=== PATIENT | male | born 1960 | race Caucasian/White ===

== ENCOUNTER 2017-12-07 11:33 | Emergency (ER) | payer MEDICARE, MEDICAID ==
[2017-12-07] MEDS ORDERED: Ibuprofen TAB* 600 MG PO ONE (13:22)
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
[2017-12-07 13:37] VITALS: BP 135/83
== END 2017-12-07 13:34 | disposition home or self-care (01) ==
LOC: ED 11:33
DX: H11.31 Conjunctival hemorrhage, right eye (principal); H10.9 Unspecified conjunctivitis; M25.551 Pain in right hip; Y09 Assault by unspecified means; F17.200 Nicotine dependence, unspecified, uncomplicated; Z88.6 Allergy status to analgesic agent
CPT/HCPCS: 99282; A9270-GY

== ENCOUNTER 2018-03-10 10:45 | Observation (INO) | payer MEDICARE, MEDICAID ==
[2018-03-10] MEDS ORDERED: Aspirin 81 mg CHEW TAB* 81 MG TAB.CHEW PO ONE (11:05)
[2018-03-10] MEDS ORDERED: Nitroglycerin TAB 0.4 MG* 0.4 MG TAB SL ONE (11:07)
[2018-03-10 11:17] LABS: ABS Basophils 0.1 10^3/ul (0-0.2); ABS Eosinophils 0.1 10^3/ul (0-0.6); ABS Lymphocytes 1.5 10^3/ul (1.0-4.8); ABS Monocytes 0.6 10^3/ul (0-0.8); ABS Nucleated RBC 0 10^3/ul; Eosinophil % 1.4 % (0-6); Hematocrit 39 % (42-52); Hemoglobin 13.1 g/dl (14.0-18.0); Lymphocyte % 20.8 % (25-47); Mean Corpuscular HGB Conc 33 g/dl (31-36); Mean Corpuscular Hemoglobin 34 pg (27-31); Mean Corpuscular Volume 101 fL (80-94); Mean Platelet Volume 8.3 um3 (7.4-10.4); Nucleated Red Blood Cells % 0; Platelet Count 288 10^3/ul (150-450); Red Blood Count 3.87 10^6/ul (4.0-5.4); Red Cell Distribution Width 14 % (10.5-15); White Blood Count 7.4 10^3/ul (3.5-10.8)
[2018-03-10 11:36] LABS: EGFR Non-African American 91.1 (>60)
--- NOTE | 2018-03-10 11:44 | RAD ---
HISTORY: Chest pain COMPARISONS: January 16, 2009 VIEWS: 1: frontal portable view of the chest at 11:18 AM FINDINGS: LINES AND TUBES: None. CARDIOMEDIASTINAL SILHOUETTE: The cardiomediastinal silhouette is normal for portable technique. PLEURA: The costophrenic angles are sharp. No pleural abnormalities are noted. LUNG PARENCHYMA: The lungs are clear. ABDOMEN: The upper abdomen is clear. There is no subphrenic gas. BONES AND SOFT TISSUES: No bone or soft tissue abnormalities are noted. IMPRESSION: NO ACTIVE CARDIOPULMONARY DISEASE.
--- NOTE | 2018-03-10 12:18 | ED ---
Estiven Hammond Angela, scribed for Wei Paez MD on 03/10/18 at 1107 . HPI Chest Pain - HPI Summary HPI Summary: This pt is a 57 y/o male presenting to [facility] via EMS c/o chest pain today. Pt describes his chest pain as pressure and states "it feels like someone is pressing on my chest." He reports his pain radiates down his left arm and rates his pain 4 out of 10 in severity. He additionally notes dizziness, SOB, and nausea. Denies diaphoresis, vomiting. His setter up is Dr. Ching. Pt is scheduled for a cardiac catheterization tomorrow (03/11/18). Pt is a current smoker. 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 - History of Current Complaint Chief Complaint: EDChestPainROMI Hx Obtained From: Patient Onset/Duration: Started Hours Ago, Atraumatic, Still Present Timing: Lasting Hours Current Severity: Moderate Pain Intensity: 4 Pain Scale Used: 0-10 Numeric Chest Pain Location: Diffuse Chest Pain Radiates: Yes Chest Pain Radiates To:: Arm - left Character: Pressure/Squeezing - Pressure Aggravating Factor(s): Nothing Alleviating Factor(s): Nothing Associated Signs and Symptoms: Positive: Chest Pain, Dizziness, Shortness of Breath, Nausea. Negative: Diaphoresis, Vomiting - Allergy/Home Medications Allergies/Adverse Reactions: Allergies Allergy/AdvReac Type Severity Reaction Status Date / Time naproxen Allergy Unknown Verified 12/07/17 13:34 Reaction Details Home Medications: Home Medications Aspirin EC TAB* [Ecotrin EC Low Dose 81 MG*] 81 mg PO DAILY 03/10/18 [History Confirmed 03/10/18] Atorvastatin* [Lipitor*] 80 mg PO DAILY 03/10/18 [History Confirmed 03/10/18] Metoprolol Tartrate TAB* [Lopressor TAB*] 25 mg PO BID 03/10/18 [History Confirmed 03/10/18] PMH/Surg Hx/FS Hx/Imm Hx Endocrine/Hematology History: Denies: Hx Anticoagulant Therapy, Hx Diabetes Cardiovascular History: Denies: Hx Hypertension Respiratory History: Denies: Hx Asthma - Surgical History Surgery Procedure, Year, and Place: n/a Infectious Disease History: No Infectious Disease History: Denies: Traveled Outside the [place] in Last 30 Days - Family History Known Family History: Positive: Cardiac Disease Negative: Diabetes Family History: [place] - Social History Alcohol Use: Occasionally Substance Use Type: Reports: None Smoking Status (MU): Heavy Every Day Tobacco Smoker Review of Systems Negative: Fever Positive: Chest Pain Positive: Shortness Of Breath Positive: Nausea. Negative: Vomiting Neurological: Other - POS: dizziness All Other Systems Reviewed And Are Negative: Yes Physical Exam - Summary Physical Exam Summary: VITAL SIGNS: Reviewed. GENERAL: Patient is a well-developed and nourished male who is lying comfortable in the stretcher. Patient is not in any acute respiratory distress. HEAD AND FACE: No signs of trauma. No ecchymosis, hematomas or skull depressions. No sinus tenderness. EYES: PERRLA, EOMI x 2, No injected conjunctiva, no nystagmus. EARS: Hearing grossly intact. Ear canals and tympanic membranes are within normal limits. MOUTH: Oropharynx within normal limits. NECK: Supple, trachea is midline, no adenopathy, no JVD, no carotid bruit, no c- spine tenderness, neck with full ROM. CHEST: Symmetric, no tenderness at palpation LUNGS: Clear to auscultation bilaterally. No wheezing or crackles. CVS: Regular rate and rhythm, S1 and S2 present, no murmurs or gallops appreciated. ABDOMEN: Soft, non-tender. No signs of distention. No rebound no guarding, and no masses palpated. Bowel sounds are normal. EXTREMITIES: FROM in all major joints, no edema, no cyanosis or clubbing. NEURO: Alert and oriented x 3. No acute neurological deficits. Speech is normal and follows commands. SKIN: Dry and warm Triage Information Reviewed: Yes Vital Signs On Initial Exam: Initial Vitals Temp Pulse Resp BP Pulse Ox 98.6 F 65 16 130/97 99 03/10/18 10:48 03/10/18 10:48 03/10/18 10:48 03/10/18 10:48 03/10/18 10:48 Vital Signs Reviewed: Yes Diagnostics - Vital Signs Vital Signs Temp Pulse Resp BP Pulse Ox 03/10/18 10:48 98.6 F 65 16 130/97 99 - Laboratory Lab Results: Lab Results 03/10/18 03/10/18 03/10/18 Range/Units 11:07 11:07 11:07 WBC 7.4 (3.5-10.8) 10^3/ul RBC 3.87 L (4.0-5.4) 10^6/ul Hgb 13.1 L (14.0-18.0) g/dl Hct 39 L (42-52) % MCV 101 H (80-94) fL MCH 34 H (27-31) pg MCHC 33 (31-36) g/dl RDW 14 (10.5-15) % Plt Count 288 (150-450) 10^3/ul MPV 8.3 (7.4-10.4) um3 Neut % (Auto) 67.9 (38-83) % Lymph % (Auto) 20.8 L (25-47) % Yates % (Auto) 8.6 H (0-7) % Eos % (Auto) 1.4 (0-6) % Baso % (Auto) 1.3 (0-2) % Absolute Neuts (auto) 5.0 (1.5-7.7) 10^3/ul Absolute Lymphs (auto) 1.5 (1.0-4.8) 10^3/ul Absolute Monos (auto) 0.6 (0-0.8) 10^3/ul Absolute Eos (auto) 0.1 (0-0.6) 10^3/ul Absolute Basos (auto) 0.1 (0-0.2) 10^3/ul Absolute Nucleated RBC 0 10^3/ul Nucleated RBC % 0 APTT 29.1 (26.0-36.3) seconds Sodium 140 (139-145) mmol/L Potassium 4.5 (3.5-5.0) mmol/L Chloride 105 (101-111) mmol/L Carbon Dioxide 28 (22-32) mmol/L Anion Gap 7 (2-11) mmol/L BUN 12 (6-24) mg/dL Creatinine 0.87 (0.67-1.17) mg/dL Est GFR ( Amer) 117.2 (>60) Est GFR (Non-Af Amer) 91.1 (>60) BUN/Creatinine Ratio 13.8 (8-20) Glucose 102 H (70-100) mg/dL Lactic Acid (0.5-2.0) mmol/L Calcium 9.0 (8.6-10.3) mg/dL Magnesium 1.9 (1.9-2.7) mg/dL Total Bilirubin 0.40 (0.2-1.0) mg/dL AST 29 (13-39) U/L ALT 29 (7-52) U/L Alkaline Phosphatase 64 (34-104) U/L Total Creatine Kinase 154 (10-223) U/L CK-MB (CK-2) 4.9 (0.6-6.3) ng/mL Troponin I 0.04 H* (<0.04) ng/mL B-Natriuretic Peptide ( - 100) pg/mL Total Protein 6.4 (6.4-8.9) g/dL Albumin 3.8 (3.2-5.2) g/dL Globulin 2.6 (2-4) g/dL Albumin/Globulin Ratio 1.5 (1-3) TSH 5.53 (0.34-5.60) mcIU/mL 03/10/18 03/10/18 Range/Units 11:07 11:07 WBC (3.5-10.8) 10^3/ul RBC (4.0-5.4) 10^6/ul Hgb (14.0-18.0) g/dl Hct (42-52) % MCV (80-94) fL MCH (27-31) pg MCHC (31-36) g/dl RDW (10.5-15) % Plt Count (150-450) 10^3/ul MPV (7.4-10.4) um3 Neut % (Auto) (38-83) % Lymph % (Auto) (25-47) % Yates % (Auto) (0-7) % Eos % (Auto) (0-6) % Baso % (Auto) (0-2) % Absolute Neuts (auto) (1.5-7.7) 10^3/ul Absolute Lymphs (auto) (1.0-4.8) 10^3/ul Absolute Monos (auto) (0-0.8) 10^3/ul Absolute Eos (auto) (0-0.6) 10^3/ul Absolute Basos (auto) (0-0.2) 10^3/ul Absolute Nucleated RBC 10^3/ul Nucleated RBC % APTT (26.0-36.3) seconds Sodium (139-145) mmol/L Potassium (3.5-5.0) mmol/L Chloride (101-111) mmol/L Carbon Dioxide (22-32) mmol/L Anion Gap (2-11) mmol/L BUN (6-24) mg/dL Creatinine (0.67-1.17) mg/dL Est GFR ( Amer) (>60) Est GFR (Non-Af Amer) (>60) BUN/Creatinine Ratio (8-20) Glucose (70-100) mg/dL Lactic Acid 0.9 (0.5-2.0) mmol/L Calcium (8.6-10.3) mg/dL Magnesium (1.9-2.7) mg/dL Total Bilirubin (0.2-1.0) mg/dL AST (13-39) U/L ALT (7-52) U/L Alkaline Phosphatase (34-104) U/L Total Creatine Kinase (10-223) U/L CK-MB (CK-2) (0.6-6.3) ng/mL Troponin I (<0.04) ng/mL B-Natriuretic Peptide 45 ( - 100) pg/mL Total Protein (6.4-8.9) g/dL Albumin (3.2-5.2) g/dL Globulin (2-4) g/dL Albumin/Globulin Ratio (1-3) TSH (0.34-5.60) mcIU/mL Result Diagrams: 03/10/18 11:07 03/10/18 11:07 Lab Statement: Any lab studies that have been ordered have been reviewed, and results considered in the medical decision making process. - Radiology Chest XR Xray Interpretation: No Acute Changes - IMPRESSION: No active cardiopulmonary disease. Dr. Paez has reviewed this radiology report. Radiology Interpretation Completed By: Radiologist - EKG 1052 Cardiac Rate: Bradycardia - at 55 bpm EKG Rhythm: Sinus Bradycardia EKG Interpretation: No ST elevations. Normal axis. Chest Pain Course/Dx - Course Assessment/Plan: This patient is a 57-year-old male who presents to the emergency department with a chief complaint of chest pressure. The patient has history of unstable angina for which he is scheduled to have a cardiac cath with Dr. Ching tomorrow. Blood work without any significant abnormality except for a normocytic normochromic anemia. Troponin is 0.04. EKG shows no ST elevations. Chest x-ray shows no acute pathology. Because of his comorbidities and the presentations of the symptoms I discussed the case with Dr. Osuna who accepted the patient for admission. The patient is hemodynamically stable alert and oriented 3. - Chest Pain Differential Diagnosis/HQI/PQRI: Acute IA, ACS, Angina, CHF, Chest Wall, GI Disease, Lower Respiratory Infection - Diagnoses Provider Diagnoses: Angina pectoris, Elevated troponin - Provider Notifications Discussed Care Of Patient With: Kirsten Osuna Time Discussed With Above Provider: 11:54 Instructed by Provider To: Other - I discussed pt care with Dr. Osuna, hospitalist, who has accepted the pt for admission. Discharge - Sign-Out/Discharge Documenting (check all that apply): Discharge/Admit/Transfer - Admit - Discharge Plan Condition: Stable Disposition: ADMITTED TO [facility] Referrals: Agata Gonzalez MD [Primary Care Provider] - - Billing Disposition and Condition Condition: STABLE Disposition: Admitted to [facility] The documentation as recorded by the Estiven mcclellan Angela accurately reflects the service I personally performed and the decisions made by , Wei Paez MD.
[2018-03-10] MEDS ORDERED: Albuterol/Ipratropium NEB.SOL* Albuterol 2.5 MG/Ipratropium 0.5 MG 3 ML INH PRN (13:21)
[2018-03-10] MEDS ORDERED: Nicotine Inhaler* 10 MG AMP INH PRN (13:22)
[2018-03-10] MEDS ORDERED: Mouth Piece, Nicotine* 1 EACH CARTRIDGE INH PRN (13:22)
--- NOTE | 2018-03-10 14:27 | HP ---
CC: Agata Gonzalez MD; Morteza Ching DO; Dr. Carrington * HISTORY AND PHYSICAL: DATE OF ADMISSION: 03/10/18 PRIMARY CARE PROVIDER: Agata Gonzalez MD CHIEF COMPLAINT: Chest heaviness. HISTORY OF PRESENT ILLNESS: Kelvin Valle is a 57-year-old male with history of smoking, who has had chest heaviness and difficulty breathing for the past several months. He finally came into the emergency department with those complaints on 03/10/18 and subsequent to that he was evaluated by Dr. Morteza Ching in the office. He was noted to have symptoms of possible angina and he was scheduled for cardiac catheterization that was supposed to be obtained tomorrow on 03/11/18. He came in to see his primary care provider today for evaluation and he complained of intermittent chest heaviness that had been going on for several weeks now. Due to that, his primary care provider sent him to the ED for evaluation. Here, his troponin is 0.04. He complains of no pain at this point. He is a very vague historian and it is impossible to get the frequency with which the chest pain occurs from the patient. The intensity of the pain when it does happen is 2/10 and it had been happening for several weeks now associated with shortness of breath. The patient is going to be placed on overnight observation with a diagnosis of chest pain. PAST MEDICAL HISTORY: 1. History of smoking less than a pack per day. 2. History of recent chest pain as mentioned above. CURRENT MEDICATIONS: Include: 1. Aspirin 81 mg daily. 2. Metoprolol tartrate 25 mg b.i.d. 3. The patient was also prescribed Lipitor 80 mg daily, but has not started it yet. ALLERGIES: NAPROXEN. FAMILY HISTORY: Positive for father with history of angina in his 70s. SOCIAL HISTORY: The patient is disabled. 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 He rents an apartment from the [employer] [place]. He smokes half a pack of cigarettes a day and he started smoking when he was 17 years old. He drinks a beer a day. He denies any drug use. His family is out of state and he has no surrogate to name. REVIEW OF SYSTEMS: Please see history of present illness. Positive for a nonproductive cough that had been ongoing and associated with shortness of breath for the past several weeks. Positive for chest pressure as mentioned above. The patient stated that the chest pressure may occur with exercise, but sometimes it is unrelated. He denies any radiation of the pain. All the remaining 12 systems were reviewed with the patient and were otherwise negative. PHYSICAL EXAMINATION GENERAL: The patient is a very pleasant 57-year-old male, who is in no acute distress. Alert, awake, and oriented x3. VITAL SIGNS: Blood pressure of 135/75, heart rate of 55 and regular, respiratory rate 12, oxygen saturation 98% on room air, temperature of 98.6. HEENT: Head: Atraumatic, normocephalic. Eyes: Pupils are equal, reactive to light and accommodation. Oropharynx clear. Mucosa moist. NECK: Supple. No JVD. The patient has a left carotid bruit noted. RESPIRATORY: Wheezes in bilateral lower mid lungs and rhonchi at bilateral bases. CARDIOVASCULAR: Regular rate and rhythm. No murmur. ABDOMEN: Soft, nontender. Bowel sounds are present in all 4 quadrants. EXTREMITIES: There is no edema. Pulses are 2+ bilaterally. No clubbing or cyanosis. NEUROLOGICAL: Speech clear. Cranial nerves II through XII are grossly intact. Motor strength is 5/5 bilaterally. PSYCHIATRIC: The patient is oriented x3 with no evidence of anxiety or depression. SKIN: No ecchymotic areas or rashes noted. DIAGNOSTIC STUDIES/LAB DATA: Laboratory data showed white blood cell count of 7.4, hemoglobin of 13.1, hematocrit of 39, MCV of 101, and platelets 288,000. Sodium was 140, potassium 4.5, chloride 105, carbon dioxide 28, BUN 12, creatinine 0.87. Liver function tests unremarkable. Troponin of 0.04. TSH of 5.53. Portable chest x-ray, impression: "No active cardiopulmonary disease." The patient's EKG shows sinus bradycardia with a heart rate of 55 beats per minute with no ST changes. ASSESSMENT/PLAN: 1. In regards to the patient's chest pain, it seems like it may be related to the patient's chronic obstructive pulmonary disease exacerbation. Nevertheless , the patient has troponin of 0.04 and risk factors. He is going to be placed on overnight observation. We will ask Dr. Carrington to see the patient in consultation, possibility of cardiac cath in the morning. For the time being, the patient is going to be placed on clear liquid diet and n.p.o. in the morning. 2. In regards to the patient's chronic obstructive pulmonary disease exacerbation, the patient is going to be placed on p.o. prednisone as well as nebulizer treatments on a p.r.n. basis and Dulera. The patient stated that he has never used nebulizers or inhalers for his lung disease and he is not aware of having a lung disease. The patient will need to have an outpatient spirometry to diagnose chronic obstructive pulmonary disease as outpatient. 3. In regards to the patient's smoking, cessation was recommended. We discussed it with the patient for approximately 5 minutes at admission. Nicotine inhaler as well as patch is going to be provided for nicotine withdrawal. 4. For DVT prophylaxis, the patient is going to be placed on full ambulation and his risk otherwise is low. 5. The patient's code status is full and he does not have a surrogate that he would name at admission. TIME SPENT: Approximately 65 minutes were spent on admission of this patient, more than half of that time was spent [id number] with the patient during the interview and physical exam. [id number]/[facility] #: [id number] ROLO
[2018-03-10] MEDS ORDERED: diPHENhydraMINE PO* 25 MG PO ONE (15:29)
[2018-03-10] MEDS ORDERED: Diazepam TAB(*) 5 MG PO ONE (15:29)
[2018-03-10] MEDS: Nicotine PATCH 21 MG/24 HR* PATCH TRANSDERM SCH (16:14)
[2018-03-10] MEDS: predniSONE TAB* 50 MG PO SCH (16:15)
[2018-03-10 16:58] LABS: ABS Basophils 0 10^3/ul (0-0.2); ABS Eosinophils 0.2 10^3/ul (0-0.6); ABS Monocytes 0.6 10^3/ul (0-0.8); ABS Neutrophils 4.4 10^3/ul (1.5-7.7); ABS Nucleated RBC 0 10^3/ul; Eosinophil % 2.4 % (0-6); Hematocrit 39 % (42-52); Hemoglobin 13.1 g/dl (14.0-18.0); Lymphocyte % 27.9 % (25-47); Mean Corpuscular HGB Conc 34 g/dl (31-36); Mean Corpuscular Hemoglobin 34 pg (27-31); Mean Corpuscular Volume 100 fL (80-94); Mean Platelet Volume 8.6 um3 (7.4-10.4); Nucleated Red Blood Cells % 0; Platelet Count 290 10^3/ul (150-450); Red Blood Count 3.86 10^6/ul (4.0-5.4); Red Cell Distribution Width 14 % (10.5-15); White Blood Count 7.2 10^3/ul (3.5-10.8)
[2018-03-10 17:01] LABS: INR 0.96 (0.77-1.02)
[2018-03-10 17:02] LABS: EGFR Non-African American 79.4 (>60)
[2018-03-10] MEDS: Mometasone/Formoter 100/5 MDI INH SCH (20:42)
[2018-03-10] MEDS: Metoprolol Tartrate TAB* 25 MG PO SCH (21:18)
[2018-03-10] MEDS ORDERED: NS 0.9% 1000 ML* 1,000 ML IV SCH (23:55)
[2018-03-11] MEDS: predniSONE TAB* 50 MG PO SCH (07:58)
[2018-03-11] MEDS: Metoprolol Tartrate TAB* 25 MG PO SCH (07:58)
[2018-03-11] MEDS: Nicotine PATCH 21 MG/24 HR* PATCH TRANSDERM SCH (07:58)
[2018-03-11] MEDS ORDERED: Diazepam TAB(*) 5 MG PO ONE (08:00)
[2018-03-11] MEDS ORDERED: diPHENhydraMINE PO* 25 MG PO ONE (08:01)
[2018-03-11] MEDS ORDERED: fentaNYL* 50 MCG/ML 2 ML VIAL (100 MCG VIAL) ONE (08:04)
[2018-03-11] MEDS ORDERED: Heparin(*) 1000 UNIT/ML 10 ML VIAL CATH LAB IV ONE (08:05)
[2018-03-11] MEDS ORDERED: nitroGLYCERIN DRIP* 25,000 MCG/250 ML BTL ONE (08:05)
[2018-03-11] MEDS ORDERED: Lidocaine 1% INJ* 10 MG/ML 30 ML SDV ONE (08:05)
[2018-03-11] MEDS ORDERED: Heparin 2 UNITS/ML IVPREMIX* 2,000 ML IV ONE (08:05)
[2018-03-11] MEDS ORDERED: VERAPAMIL 2.5 MG/ML 2 ML VIAL ** 5 mg/2 ml ONE (08:06)
[2018-03-11] MEDS ORDERED: Iohexol 350 (CONTRAST) 200 ML MDV IV ONE ×2 (08:06→08:07)
[2018-03-11] MEDS ORDERED: Midazolam* 1 MG/ML 10 ML VIAL (10 MG) ONE (08:16)
[2018-03-11] MEDS: Mometasone/Formoter 100/5 MDI INH SCH (08:37)
[2018-03-11] MEDS ORDERED: Aspirin EC TAB* 81 MG TAB.EC PO SCH (09:00)
[2018-03-11] MEDS ORDERED: Atorvastatin* 80 MG TAB PO SCH (09:00)
[2018-03-11] MEDS ORDERED: Acetaminophen TAB* 325 MG PO PRN (09:25)
[2018-03-11 12:43] VITALS: BP 123/72
--- NOTE | 2018-03-11 22:35 | DS ---
CC: Dr. Agata Gonzalez; Dr. Morteza Ching; Dr. Triston Carrington * DISCHARGE SUMMARY: DATE OF ADMISSION: 03/10/18 DATE OF DISCHARGE: 03/11/18 PRIMARY CARE PROVIDER: Dr. Agata Gonzalez. DISCHARGE DIAGNOSES: 1. Chest pain with "minimal coronary artery disease" on cardiac catheterization documented on 03/11/18. The chest pain was likely related to chronic obstructive pulmonary disease exacerbation. 2. Chronic obstructive pulmonary disease exacerbation. 3. Tobacco abuse. MEDICATIONS AT DISCHARGE: Include: 1. Aspirin 81 mg daily. 2. Lipitor 80 mg daily. 3. Metoprolol tartrate 25 mg b.i.d. 4. Albuterol inhaler 1 puff every 4 hours p.r.n. 5. Dulera 100/5 two puffs b.i.d. 6. Nicotine patch 21 mg every 24 hours. 7. Prednisone 50 mg daily for 5 days total, then stop. PROCEDURES PERFORMED DURING THE HOSPITAL STAY: Cardiac catheterization performed by Dr. Carrington on 03/11/18. The verbal report that I received from Dr. Carrington prior to the official transcribed report stated that the patient had minimal coronary artery disease. LABORATORY DATA DURING THE HOSPITAL STAY: Included on 03/10/18, sodium 137, potassium 3.9, chloride 103, carbon dioxide 27, BUN 11, creatinine 0.98. The patient's troponins throughout his hospital stay continued to be at 0.04. Also, on 03/10/18, white blood cell count of 7.2, hemoglobin of 13.1, hematocrit of 39, MCV of 100, and platelets of 290. DISCHARGE FOLLOWUP: At discharge, the patient is recommended to follow up with his primary care provider in 4 to 7 days. The patient is also recommended to follow up with machine cementer and folder, Dr. Morteza Ching , in approximately 1 to 2 weeks. PHYSICAL EXAMINATION: At the time of discharge, blood pressure of 138/87, heart rate of 61 and regular, respiratory rate 18, oxygen saturation 100% on room air, temperature 97.6. General: The patient is a very pleasant 57-year- old male, who is in no acute distress. Alert, awake, and oriented x3. HEENT: Head: Atraumatic, normocephalic. Eyes: Pupils are equal, reactive to light and accommodation. Oropharynx is clear. Mucosa moist. Neck: Supple. No JVD. No bruits bilaterally. Cardiovascular: Regular rate and rhythm. No murmur. Respiratory: The patient has coarse breath sounds bilaterally with wheezes in bilateral bases, much improved from admission. Abdomen: Soft, nontender. Bowel sounds are present in all 4 quadrants. Extremities: There is no edema. Pulses are 2+ bilaterally. No clubbing or cyanosis. Right radial access for the patient's cardiac catheterization is covered with Tegaderm. There is palpable pulse. No evidence of hematoma. His right wrist is in immobilizer post cardiac catheterization. Neuro Evaluation: Cranial nerves II through XII are grossly intact. Motor strength is 5/5 bilaterally. The patient is being discharged home approximately 3 hours after this cardiac catheterization with recommendations to follow up as above. Post cardiac catheterization specific orders were given to the patient at discharge. Please note that this is a short summary of the patient's hospital stay. Please refer to further medical records for details. TIME SPENT: Approximately 35 minutes was spent on the patient's discharge. [id number]/[facility] #: [id number] ROLO
--- NOTE | 2018-03-12 16:44 | CATH ---
CC: Dr. Morteza Ching * CARDIAC CATHETERIZATION: DATE OF PROCEDURE: 03/11/18 PROCEDURE: Cardiac catheterization including coronary angiography, left heart catheterization, left ventriculogram. INDICATION: Angina, abnormal troponin. The patient in general with a long history of smoking and borderline diabetes, who was seen by Dr. Ching last week for crescendo angina. Dr. Ching was quite concerned about his symptoms and placed him on aspirin and beta blockers and requested a cardiac catheterization because of his symptoms. The patient was admitted to the hospital yesterday because of increased shortness of breath and chest pain. In the emergency room, his EKG showed no changes. His troponin level measured 0.04. He was referred for cardiac catheterization. DESCRIPTION OF PROCEDURE: The patient was brought to the cardiac catheterization lab in a fasting state. Informed consent had been obtained prior to procedure. All labs were reviewed. The patient was placed supine on the procedure table. His right wrist area was prepped and draped in the usual fashion. 1% lidocaine was used for local anesthesia. The right radial artery was entered by a Seldinger technique and a guidewire was placed. Over the guidewire, a 6-Congolese sheath introducer was placed. A cocktail of heparin, nitroglycerin, and verapamil was infused. The patient underwent coronary angiography using a 5-Congolese TIG catheter and a 5-Congolese pigtail catheter. At the end of the procedure, all sheaths and caths were removed. The patient tolerated the procedure well with no complications. A total of 85 cc of Omnipaque dye was used and a total of 5.6 minutes of fluoro time was used. FINDINGS: 1. Left main. The left main was normal in size. It trifurcated into the LAD, ramus, and circumflex artery. There was no evidence of stenosis. 2. Left anterior descending artery. The LAD was normal in size. It gave off 2 diagonal vessels. There was mild disease in the proximal LAD. 3. Ramus artery. The ramus artery was a moderate size vessel. There was mild disease in the proximal vessel. The remainder of the vessel was without disease. 4. Left circumflex artery. The circumflex artery was normal in size. It gave off 1 obtuse marginal branch. There was no evidence of stenosis. 5. Right coronary artery. The RCA was a large dominant vessel. It gave off the PDA, the mid vessel. The right coronary artery had a 50% stenosis followed by a 40% stenosis. The remainder of the vessel was without disease. Left ventriculogram: Left ventricle was normal in size and systolic function. Estimated ejection fraction 65%. There was no mitral regurgitation. Aortic valve and ascending aorta were normal. HEMODYNAMICS: Central aortic blood pressure 138/80 with a mean of 104. Left ventricular pressure 132/5 with an end-diastolic pressure of 14. IMPRESSION: 1. Noncritical coronary artery disease. 2. Normal left ventricular function. RECOMMENDATION: The patient will continue on maximum medical therapy. [id number]/[facility] #: [id number] [facility]
== END 2018-03-11 14:15 | disposition home or self-care (01) ==
LOC: ED 10:45 → MEDTELE 12:34
PROVIDERS: ADMIT Internal Medicine; ATTEND Internal Medicine
DX: R07.9 Chest pain, unspecified (principal); I25.110 Atherosclerotic heart disease of native coronary artery with unstable angina pectoris; R42 Dizziness and giddiness; R06.02 Shortness of breath; R11.0 Nausea; R79.89 Other specified abnormal findings of blood chemistry; Z95.9 Presence of cardiac and vascular implant and graft, unspecified; J44.1 Chronic obstructive pulmonary disease with (acute) exacerbation; F17.210 Nicotine dependence, cigarettes, uncomplicated; Z79.82 Long term (current) use of aspirin
CPT/HCPCS: 36415; 71045; 80048; 80053; 82550; 82553; 83605; 83735; 83880; 84443; 84484; 85025; 85610; 85730; 86140; 93005; 93458; 94640; 99156; 99157; 99283; 99406; A9270-GY; G0378; J1644; J2250; J3010; J7512

== ENCOUNTER 2019-01-28 10:54 | Inpatient (IN) | payer MEDICARE, MEDICAID ==
--- NOTE | 2019-01-28 14:10 | ED ---
Upper Extremity Pain - HPI Summary HPI Summary: Patient is a 58-year-old male who presents to the emergency department for wound to his right upper arm times one week. 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 Patient states he was squeezing the wound and it progressively got larger and redder. Past medical history of high blood pressure and high cholesterol. Patient notes chills today and has had a few episodes of vomiting. Symptoms are moderate in severity. Moving arms makes symptoms worse. Nothing makes symptoms better. - History of Current Complaint Chief Complaint: EDGeneral Stated Complaint: RIGHT ARM INFECTION PER PT Time Seen by Provider: 01/28/19 13:50 Hx Obtained From: Patient - Allergies/Home Medications Allergies/Adverse Reactions: Allergies Allergy/AdvReac Type Severity Reaction Status Date / Time naproxen Allergy Unknown Verified 12/07/17 13:34 Reaction Details PMH/Surg Hx/FS Hx/Imm Hx Previously Healthy: Yes Endocrine/Hematology History: Denies: Hx Anticoagulant Therapy, Hx Diabetes Cardiovascular History: Denies: Hx Hypertension Respiratory History: Denies: Hx Asthma Sensory History: Denies: Hx Contacts or Glasses, Hx Hearing Aid Opthamlomology History: Denies: Hx Contacts or Glasses - Surgical History Surgery Procedure, Year, and Place: n/a Infectious Disease History: No Infectious Disease History: Denies: Traveled Outside the [place] in Last 30 Days - Family History Known Family History: Positive: None, Cardiac Disease Negative: Diabetes Family History: [place] - Social History Occupation: Disabled Lives: Alone Alcohol Use: Weekly Substance Use Type: Reports: None Smoking Status (MU): Heavy Every Day Tobacco Smoker Type: Cigarettes Length of Time of Smoking/Using Tobacco: 50 Have You Smoked in the Last Year: Yes Review of Systems Positive: Chills Cardiovascular: Negative Negative: Chest Pain Respiratory: Negative Negative: Shortness Of Breath Positive: Vomiting, Nausea Positive: Other - Right upper arm pain and swelling Positive: Other - wound to right upper outer arm Negative: Weakness, Paresthesia, Numbness All Other Systems Reviewed And Are Negative: Yes Physical Exam Triage Information Reviewed: Yes Vital Signs On Initial Exam: Initial Vitals Temp Pulse Resp BP Pulse Ox 100.0 F 117 16 109/75 95 01/28/19 11:03 01/28/19 11:03 01/28/19 11:03 01/28/19 11:03 01/28/19 11:03 Vital Signs Reviewed: Yes Appearance: Positive: Well-Appearing - PT. sitting up in bed in NAD. Skin: Positive: Warm, Dry Head/Face: Positive: Normal Head/Face Inspection Eyes: Positive: Normal, EOMI, LEN Neck: Positive: Supple Musculoskeletal: Positive: Other - 1cm dark wound noted to right upper outer arm with extensive surrouding induration and erythema. Erythema extends down in AC region. No involvement of elbow or shoulder Neurological: Positive: Normal, CN Intact II-III Diagnostics - Vital Signs Vital Signs Temp Pulse Resp BP Pulse Ox 01/28/19 11:59 98.6 F 102 18 117/78 99 01/28/19 11:03 100.0 F 117 16 109/75 95 - Laboratory Result Diagrams: 01/28/19 15:02 01/28/19 15:02 Lab Statement: Any lab studies that have been ordered have been reviewed, and results considered in the medical decision making process. Course/Dx - Course Course Of Treatment: Patient presenting with wound an extensive cellulitis to right upper arm. Does have a low-grade fever and is mildly tachycardic. Patient started on IV fluids and and mycin. Will obtain CT scan for further evaluation of the extension of infection. CBC shows a leukocytosis of 14.8. CRP 150. CT UE per radiology: IMPRESSION: A skin defect is noted in the upper arm laterally with underlying focal area. of fluid. No organized abscess is noted. Diffuse subcutaneous edema is noted in the upper. arm. Given extent the patient's cellulitis, leukocytosis and elevated CRP hospitalist was consulted for admission. I spoke with Dr. Osuna who accepts pt. to her service. - Diagnoses Provider Diagnoses: Right arm cellulitis, Wound infection, Leukocytosis Discharge - Sign-Out/Discharge Documenting (check all that apply): Patient Departure Patient Received Moderate/Deep Sedation with Procedure: No - Discharge Plan Condition: Stable Disposition: ADMITTED TO [facility] Referrals: Agata Gonzalez MD [Primary Care Provider] - - Billing Disposition and Condition Condition: STABLE Disposition: Admitted to [facility]
[2019-01-28] MEDS ORDERED: NS 0.9% 1000 ML** 1,000 ML IV.FLUID IV ONE (14:11)
[2019-01-28] MEDS ORDERED: Clindamycin 600 MG/D5W BAG(*) 600 MG/50 ML BAG IV ONE (14:12)
[2019-01-28 15:19] LABS: Hematocrit 46 % (36-46); Hemoglobin 15.1 g/dL (14.0-18.0); Mean Corpuscular HGB Conc 33 g/dL (31-36); Mean Corpuscular Hemoglobin 33 pg (27-31); Mean Corpuscular Volume 100 fL (80-94); Mean Platelet Volume 8.2 fL (7.4-10.4); Platelet Count 288 10^3/uL (150-450); Red Cell Distribution Width 14 % (10.5-15); White Blood Count 14.8 10^3/uL (3.5-10.8)
[2019-01-28 15:40] LABS: Albumin 3.9 g/dL (3.2-5.2); CO2 Carbon Dioxide 25 mmol/L (22-32); Calcium 8.7 mg/dL (8.6-10.3); Chloride 101 mmol/L (101-111); Sodium 133 mmol/L (135-145)
[2019-01-28 15:46] LABS: ALT 32 U/L (7-52); Albumin/Globulin Ratio 1.2 (1-3); Alkaline Phosphatase 85 U/L (34-104); BUN/Creatinine Ratio 10.1 (8-20); Blood Urea Nitrogen 9 mg/dL (6-24); C Reactive Protein 154.09 mg/L (<8.01); EGFR Non-African American 88.4 (>60); Globulin 3.3 g/dL (2-4); Glucose 103 mg/dL (70-100); Total Protein 7.2 g/dL (6.4-8.9)
[2019-01-28 16:23] LABS: Lymphocytes % 9 %; Monocytes % 5 %; Neutrophil % 85 %; Variant Lymph % 1 % (0-6)
[2019-01-28 16:24] LABS: ABS Neutrophils 12.6 10^3/ul (1.5-7.7)
[2019-01-28 16:29] LABS: Anion Gap 7 mmol/L (2-11)
[2019-01-28] MEDS ORDERED: Iohexol 300* (CONTRAST) 10 ML SDV IV ONE (16:37)
[2019-01-28] MEDS ORDERED: Acetaminophen TAB* 325 MG PO PRN (19:36)
[2019-01-28] MEDS ORDERED: Ondansetron INJ* 2 MG/ML VIAL IV PRN (19:36)
[2019-01-28] MEDS ORDERED: Albuterol 2.5 MG/3 ML NEB.SOL* (0.083%) INH PRN (19:36)
[2019-01-28] MEDS ORDERED: Albuterol HFA INHALER* 8 gm MDI INH PRN (19:41)
[2019-01-28] MEDS: oxyCODONE/Acetamin 5/325 MG* TAB PO PRN (19:53)
[2019-01-28] MEDS ORDERED: Vancomycin(*) 1,000 MG in NS 0.9% 250 ML* 250 ML IVPB ONE (19:55)
[2019-01-28] MEDS: Nicotine PATCH 21 MG/24 HR* PATCH TRANSDERM SCH (20:35)
[2019-01-28] MEDS: Mometasone/Formoter 100/5 MDI INH SCH (20:57)
[2019-01-28] MEDS ORDERED: Nicotine GUM* 2 MG PO PRN (21:45)
[2019-01-28] MEDS: Metoprolol Tartrate TAB* 25 MG PO SCH (22:21)
[2019-01-28] MEDS: NS 0.9% 1000 ML** 1,000 ML IV SCH (22:37)
--- NOTE | 2019-01-28 23:10 | HP ---
CC: Dr. Elisabeth Hill; Dr. Morteza Burns, Surgical Service* ADMISSION HISTORY AND PHYSICAL: DATE OF ADMISSION: 01/28/19 CHIEF COMPLAINT: Right upper extremity pain. PRIMARY PROVIDER: [facility], Dr. Agata Gonzalez. ATTENDING FOR THIS ADMISSION: Dr. Elisabeth Hill* (dictated by Barbra Gross NP). HISTORY OF PRESENT ILLNESS: Mr. Valle is a very pleasant 57-year-old male patient with a history of tobacco abuse, hypertension, and angina, who presents to the emergency department today after reporting, approximately 3 days ago, what he thinks was, a spider bite to the posterior portion of the right upper extremity. The patient states he felt kind of a tickling sensation on his arm. When he brushed his arm, he noticed a spider being flung across the room and onto the floor. He did feel some pinching sensation at that time, but did not note any further abnormalities. The patient states the following morning he did notice some redness and itching and over the course of the last 3 days noted a pimple-like formation that had some purulent drainage. He did apply pressure and did express some purulent material from the bite site. However, he noticed, over the last 24 hours, some increasing erythema to the upper extremity and into the right axilla, also some chills, subjective fevers, and some general malaise. The patient also noted some scabbing to the center of the bite chasidy and at that point he decided to come to the emergency department for additional evaluation. EMERGENCY DEPARTMENT COURSE: The patient had a CAT scan, received clindamycin and IV fluids, and was referred for evaluation. PAST MEDICAL HISTORY: Significant for hypertension, hyperlipidemia, and angina. MEDICATIONS: At home, include: 1. Metoprolol tartrate 25 mg p.o. b.i.d. 2. Dulera 2 puffs inhaled b.i.d. 3. Nicotine patch 21 mg, 1 patch transdermal daily. 4. Atorvastatin 80 mg daily. 5. Aspirin 81 mg daily. 6. Ventolin inhaler 1 puff q.4 hours as needed. ALLERGIES: The patient has an allergy to NAPROXEN. FAMILY HISTORY: Positive for mother with breast cancer, father with coronary artery disease. SOCIAL HISTORY: Significant for smoking. Drinks alcohol socially. Denies any illicit drug use. He is unemployed and disabled. He does live at the [facility]. REVIEW OF SYSTEMS: The patient endorses chills and some subjective fevers. He does have some pain in the right upper extremity extending into the right axilla , also reports warmth and erythema to the area. Denies any shortness of breath. No chest pain. No nausea, no vomiting, no abdominal pain. No urinary complaints. No arthralgias or myalgias, and no further constitutional complaints. PHYSICAL EXAMINATION GENERAL: Reveals a thin, but otherwise well-nourished, well-appearing male, in no acute distress. VITAL SIGNS: Blood pressure 124/83, heart rate 84, respiratory rate 16, O2 saturation 99% on room air, with a temperature now of 99.1. HEENT: The patient is atraumatic, normocephalic. PERRLA. Nonicteric sclerae. Oral mucosa is moist. Tongue is midline. NECK: Supple. Nontender. No JVD noted. No carotid bruit auscultated. LUNGS: Clear at the apices. He has got a bilateral expiratory wheeze. He does have an unproductive cough. No rales or rhonchi noted. CARDIOVASCULAR: S1 and S2 present. No murmurs, gallops or rubs noted. Rate and rhythm are regular. ABDOMEN: Soft, nontender, and nondistended. Positive bowel sounds in all 4 quadrants. : Deferred. MUSCULOSKELETAL: There is no clubbing, no cyanosis, and no edema. He has +2 distal pulses palpable on the lower extremities. Full range of motion. Gross motor and sensation are intact. Upper extremities: Right posterior aspect of the right upper extremity reveals diffuse erythema, warmth, tenderness, some fluctuance noted around a small area of black scabbing. Some eschar-type material at the center. No exudate noted. There is a significant amount of edema in the immediate vicinity of the central location of this bite chasidy. The patient does have distal pulse intact on the affected side. NEUROLOGIC: Grossly intact, with no focal deficits. PSYCHIATRIC: He is cooperative and appropriate. LABORATORY DATA: WBC is 14.8, RBC is 4.60, hemoglobin 15.1, hematocrit 46, platelets 288. Sodium 133, potassium is unavailable, chloride 101, CO2 of 25, BUN 9, creatinine 0.89. GFR 88.4. BUN-creatinine ratio was 10.1. Glucose 103 , lactic acid 1.0, calcium 8.7, bilirubin 0.60, AST not available yet, ALT 32, alk phos 85. CRP is 154.09. Total protein 7.2, albumin 3.9, globulin 3.3. IMAGING: CAT scan of the upper extremity: CAT scan shows a skin defect noted in the upper arm laterally with underlying focal area of fluid. No organized abscess is noted. There is diffuse subcutaneous edema noted in the upper arm. IMPRESSION: This is a 58-year-old male with a reported spider bite 3 days ago, who now presents in the emergency department with fever, tachycardia, diffuse cellulitis, and wound formation. PLAN: The patient has been admitted to inpatient service. DIAGNOSES: 1. Cellulitis secondary to spider bite: The patient has already received clindamycin, 2 L of normal saline. At this point, I reached out to Dr. Burns of Surgical Service who has evaluated the CT. He has not coalesced into an abscess at this point; however, he is high risk to do so. Dr. Burns will be seeing the patient tomorrow. At this point, I will be changing his antibiotics to vancomycin, continue to follow blood cultures. If there is any drainage from this site, we will obtain a wound culture and continue to cover him for methicillin-resistant Staphylococcus aureus. We will continue normal saline at 75 mL per hour, continue Tylenol for any fever, Percocet for pain as needed. 2. History of tobacco abuse: The patient, I suspect, does have underlying COPD , although he does not endorse this diagnosis. We will continue him on albuterol with DuoNebs as needed. Continue him on his Dulera inhaler, nicotine patch for replacement. He has been counseled on cessation. 3. History of hypertension: He will be continued on his metoprolol tartrate. The patient did have a cardiac cath earlier in the year, which did not show any significant ischemic disease. He was seen by Dr. Morteza Ching in the past. He does follow with Cardiology as an outpatient. He is not high risk at this time. He can go to regular medical floor and does not require telemetry. His tachycardia has resolved since having his IV fluids in the ED and now that his fever is better controlled, we will continue to monitor heart rate during his hospitalization. 4. History of hyperlipidemia: We will continue him on his statin. 5. Leukocytosis and elevated CRP: These are secondary to his diagnosis of cellulitis. We will monitor his daily labs and continue to follow blood cultures and wound cultures as warranted. 6. DVT prophylaxis: The patient is ambulatory and otherwise low risk. 7. Diet: He can have regular, unrestricted diet. 8. Code status: He is full code. 9. Healthcare proxy: The patient reports he does not have a healthcare proxy at this time. We will also consult social work to discuss housing with the patient and emergency contact. The rest of the patient's course will be determined by further diagnostics, laboratories, and any other input from other providers as warranted during this admission. This plan of care has been discussed with Dr. Elisabeth Hill, who is in agreement with plan of care. TIME SPENT: 60 minutes. BARBRA GROSS, KARTHIK [id number]/[facility] #: [id number] ROLO
[2019-01-29] MEDS: oxyCODONE/Acetamin 5/325 MG* TAB PO PRN ×5 (00:35→20:08)
[2019-01-29] MEDS: Albuterol/Ipratropium NEB.SOL* Albuterol 2.5 MG/Ipratropium 0.5 MG 3 ML INH SCH ×2 (01:40→07:35)
[2019-01-29 06:54] LABS: ABS Basophils 0.1 10^3/ul (0-0.2); ABS Eosinophils 0.5 10^3/ul (0-0.6); ABS Lymphocytes 2.2 10^3/ul (1.0-4.8); ABS Monocytes 0.6 10^3/ul (0-0.8); ABS Neutrophils 7.3 10^3/ul (1.5-7.7); ABS Nucleated RBC 0 10^3/ul; Eosinophil % 4.4 %; Hematocrit 39 % (36-46); Hemoglobin 13.3 g/dL (14.0-18.0); Lymphocyte % 20.5 %; Mean Corpuscular HGB Conc 34 g/dL (31-36); Mean Corpuscular Hemoglobin 34 pg (27-31); Mean Corpuscular Volume 99 fL (80-94); Mean Platelet Volume 8.3 fL (7.4-10.4); Nucleated Red Blood Cells % 0; Platelet Count 278 10^3/uL (150-450); Red Blood Count 3.97 10^6 /uL (4.18-5.48); Red Cell Distribution Width 13 % (10.5-15); White Blood Count 10.6 10^3/uL (3.5-10.8)
[2019-01-29 07:10] LABS: Albumin 3.3 g/dL (3.2-5.2); Albumin/Globulin Ratio 1.3 (1-3); BUN/Creatinine Ratio 12.2 (8-20); Calcium 8.5 mg/dL (8.6-10.3); EGFR African American 117.6 (>60); EGFR Non-African American 97.2 (>60); Globulin 2.6 g/dL (2-4); Potassium 3.9 mmol/L (3.5-5.0); Total Bilirubin 0.5 mg/dL (0.2-1.0); Total Protein 5.9 g/dL (6.4-8.9)
[2019-01-29] MEDS: Mometasone/Formoter 100/5 MDI INH SCH ×2 (07:35→19:32)
[2019-01-29] MEDS: Metoprolol Tartrate TAB* 25 MG PO SCH ×3 (08:23→20:09)
[2019-01-29] MEDS: Atorvastatin* 80 MG TAB PO SCH (08:23)
[2019-01-29] MEDS: Aspirin EC TAB* 81 MG TAB.EC PO SCH (08:23)
[2019-01-29] MEDS: Nicotine PATCH 21 MG/24 HR* PATCH TRANSDERM SCH ×2 (08:23→08:25)
[2019-01-29] MEDS: NS 0.9% 1000 ML** 1,000 ML IV SCH (11:11)
--- NOTE | 2019-01-29 17:20 | PN ---
Subjective Date of Service: 01/29/19 Interval History: Patient seen and examined. States he still has chills but no fever, pain is well controlled with percocet. He notes the area of redness to his RUE has retracted from the marked margins. He denies SOB or chest pain, no n/v/d. Objective Active Medications: Acetaminophen (Tylenol Tab*) 650 mg PO Q4H PRN PRN Reason: FEVER/PAIN Albuterol (Ventolin Hfa Inhaler*) 1 puff INH Q4H PRN PRN Reason: WHEEZING Aspirin (Aspirin Ec Tab*) 81 mg PO DAILY [facility] Last Admin: 01/29/19 08:23 Dose: 81 mg Atorvastatin Calcium (Lipitor*) 80 mg PO DAILY [facility] Last Admin: 01/29/19 08:23 Dose: 80 mg Sodium Chloride (Ns 0.9% 1000 Ml) 1,000 mls @ 75 mls/hr IV PER RATE [facility] Last Admin: 01/29/19 11:11 Dose: 75 mls/hr Metoprolol Tartrate (Lopressor Tab*) 25 mg PO BID [facility] Last Admin: 01/29/19 08:24 Dose: Not Given Mometasone Furoate/Formoterol Fumar (Dulera 100/5 Mdi*) 2 puff INH BID [facility] Last Admin: 01/29/19 07:35 Dose: 2 puff Nicotine (Nicotine Patch 21 Mg/24 Hr*) 1 patch TRANSDERM DAILY [facility] Last Admin: 01/29/19 08:25 Dose: Not Given Nicotine Polacrilex (Nicotine Gum*) 2 mg PO Q2H PRN PRN Reason: CRAVING Ondansetron HCl (Zofran Inj*) 4 mg IV Q4H PRN PRN Reason: NAUSEA/VOMITING Oxycodone/Acetaminophen (Percocet 5/325 Tab*) 1 tab PO Q4H PRN PRN Reason: Pain Last Admin: 01/29/19 15:41 Dose: 1 tab Pharmacy Profile Note (Nicotine Patch Removal Note*) 1 note PATCH OFF 2100 [facility] Vital Signs - 8 hr 01/29/19 01/29/19 01/29/19 09:31 11:11 11:22 Temperature 97.8 F Pulse Rate 74 Respiratory 16 16 18 Rate Blood Pressure 98/54 (mmHg) O2 Sat by Pulse 98 Oximetry 01/29/19 01/29/1901/29/19 13:33 15:25 15:41 Temperature 98.2 F Pulse Rate 73 Respiratory 18 16 18 Rate Blood Pressure 124/71 (mmHg) O2 Sat by Pulse 98 Oximetry Oxygen Devices in Use Now: None Appearance: alert, NAD Eyes: No Scleral Icterus, PERRLA Ears/Nose/Mouth/Throat: NL Teeth, Lips, Gums, Mucous Membranes Moist Neck: NL Appearance and Movements; NL JVP, Trachea Midline Respiratory: Symmetrical Chest Expansion and Respiratory Effort, Clear to Auscultation Cardiovascular: NL Sounds; No Murmurs; No JVD, RRR, No Edema Abdominal: NL Sounds; No Tenderness; No Distention Extremities: No Clubbing, Cyanosis, - - posterior RUE wound with central dark brown scab and surrounding erythema, firm with area of induration, no drainage noted. Neurological: Alert and Oriented x 3, NL Muscle Strength and Tone Nutrition: Taking PO's Result Diagrams: 01/29/19 06:42 01/29/19 06:42 Microbiology and Other Data: Microbiology 01/28/19 15:02 Aerobic Blood Culture - Preliminary Blood Venous No Growth Day 1 Anaerobic Blood Culture - Preliminary No Growth Day 1 01/28/19 14:44 Aerobic Blood Culture - Preliminary Blood Venous No Growth Day 1 Anaerobic Blood Culture - Preliminary No Growth Day 1 Diagnostic Imaging: Patient Name: KASSANDRA PALACIOS Medical Record#: [id number] Ordering Physician: Yolette Gross NP Acct.#: [id number] : 1960 Age: 58 Sex: M Location: [address] [place] [address] - MEDICAL Exam Date: 01/29/191446 ADM Status: ADM IN Order Information: US SOFT TISSUE LIMITED EXT-RT Accession Number: [id number] CPT: 54975 HISTORY: r/o Abscess, RUE COMPARISONS: None. TECHNIQUE: Multiple transverse and longitudinal ultrasound images were obtained of the area of clinical abnormality of the right upper extremity using grayscale and color Doppler imaging. FINDINGS: There is subcutaneous edema. There is no loculated fluid collection. IMPRESSION: SOFT TISSUE EDEMA CONSISTENT WITH CELLULITIS GIVEN THE CLINICAL HISTORY. NO LOCULATED FLUID COLLECTION TO SUGGEST ABSCESS. Assess/Plan/Problems-Billing Assessment: This is a 58 year old male with history of HTN and HLP that presented to ED with pustulent wound of the right upper extremity, with leukocytosis and tachycardia, admitted for complicated cellulitis. - Patient Problems (1) Cellulitis Code(s): L03.90 - CELLULITIS, UNSPECIFIED SNOMED Code(s): 161026021 Comment: - No sepsis on admission - Leukocytosis improved - CT with no abscess but did seem to have worsening today - US today does not show abscess forming today - Will continue current management with IV vanco (2) HTN (hypertension) Code(s): I10 - ESSENTIAL (PRIMARY) HYPERTENSION SNOMED Code(s): 32871652 Comment: - continue metorprolol, ASA and statin (3) DVT prophylaxis Code(s): CMH2296 - SNOMED Code(s): 740579660 Comment: - HSQ (4) Full code status Code(s): Z78.9 - OTHER SPECIFIED HEALTH STATUS SNOMED Code(s): 836351872 Status and Disposition: Inpatient for IV atbx
[2019-01-29] MEDS ORDERED: Vancomycin per Pharmacy* NOTE FOLLOW UP PRN (19:19)
[2019-01-29] MEDS ORDERED: Vancomycin(*) 1,250 MG IV x ONCE IVPB ONE ×2 (19:30)
[2019-01-29] MEDS: Nicotine Patch Removal NOTE PATCH OFF SCH (20:03)
[2019-01-30] MEDS: oxyCODONE/Acetamin 5/325 MG* TAB PO PRN ×3 (03:56→19:44)
[2019-01-30] MEDS: NS 0.9% 1000 ML** 1,000 ML IV SCH (03:58)
[2019-01-30] MEDS: Mometasone/Formoter 100/5 MDI INH SCH ×2 (08:18→19:12)
[2019-01-30] MEDS: Vancomycin(*) 1,000 MG in NS 0.9% 250 ML* 250 ML IVPB SCH ×2 (09:00→19:48)
[2019-01-30] MEDS: Metoprolol Tartrate TAB* 25 MG PO SCH ×2 (09:01→20:52)
[2019-01-30] MEDS: Aspirin EC TAB* 81 MG TAB.EC PO SCH (09:01)
[2019-01-30] MEDS: Atorvastatin* 80 MG TAB PO SCH (09:01)
[2019-01-30] MEDS: Nicotine PATCH 21 MG/24 HR* PATCH TRANSDERM SCH (09:05)
--- NOTE | 2019-01-30 18:30 | PN ---
Subjective Date of Service: 01/30/19 Interval History: Patient seen and examined. No acute overnight events. Discussed US results and lack of abscess which is encouraging. Patient states he still has significant pain in the area directly around the wound, but no fever. Some chills at night only. No SOB, no n/v. No further complaints. Objective Active Medications: Acetaminophen (Tylenol Tab*) 650 mg PO Q4H PRN PRN Reason: FEVER/PAIN Albuterol (Ventolin Hfa Inhaler*) 1 puff INH Q4H PRN PRN Reason: WHEEZING Aspirin (Aspirin Ec Tab*) 81 mg PO DAILY [facility] Last Admin: 01/30/19 09:01 Dose: 81 mg Atorvastatin Calcium (Lipitor*) 80 mg PO DAILY [facility] Last Admin: 01/30/19 09:01 Dose: 80 mg Sodium Chloride (Ns 0.9% 1000 Ml) 1,000 mls @ 75 mls/hr IV PER RATE [facility] Last Admin: 01/30/19 03:58 Dose: 75 mls/hr Vancomycin HCl 1,000 mg/ (Sodium Chloride) 250 mls @ 166.667 mls/hr IVPB Q12H [facility] Last Admin: 01/30/19 09:00 Dose: 166.667 mls/hr Metoprolol Tartrate (Lopressor Tab*) 25 mg PO BID [facility] Last Admin: 01/30/19 09:01 Dose: 25 mg Mometasone Furoate/Formoterol Fumar (Dulera 100/5 Mdi*) 2 puff INH BID [facility] Last Admin: 01/30/19 08:18 Dose: 2 puff Nicotine (Nicotine Patch 21 Mg/24 Hr*) 1 patch TRANSDERM DAILY [facility] Last Admin: 01/30/19 09:05 Dose: Not Given Nicotine Polacrilex (Nicotine Gum*) 2 mg PO Q2H PRN PRN Reason: CRAVING Ondansetron HCl (Zofran Inj*) 4 mg IV Q4H PRN PRN Reason: NAUSEA/VOMITING Oxycodone/Acetaminophen (Percocet 5/325 Tab*) 1 tab PO Q4H PRN PRN Reason: Pain Last Admin: 01/30/19 10:58 Dose: 1 tab Pharmacy Consult (Vancomycin Per Pharmacy*) 1 note FOLLOW UP . PRN PRN Reason: PER PROTOCOL Pharmacy Profile Note (Nicotine Patch Removal Note*) 1 note PATCH OFF 2100 [facility] Last Admin: 01/29/19 20:03 Dose: Not Given Pharmacy Profile Note (Vancomycin Trough Check) 1 note FOLLOW UP 0730 ONE Stop: 01/31/19 07:31 Vital Signs - 8 hr 01/30/19 10:58 Respiratory 18 Rate Oxygen Devices in Use Now: None Appearance: alert, NAD Eyes: No Scleral Icterus, PERRLA Ears/Nose/Mouth/Throat: NL Teeth, Lips, Gums, Mucous Membranes Moist Neck: NL Appearance and Movements; NL JVP, Trachea Midline Respiratory: Symmetrical Chest Expansion and Respiratory Effort, - - mild expiratory wheeze, improving Cardiovascular: NL Sounds; No Murmurs; No JVD Abdominal: NL Sounds; No Tenderness; No Distention Extremities: No Clubbing, Cyanosis Skin: - - RUE wound with further retraction from marked lines, remains firm and erythematous with central eschar/scabbing Neurological: Alert and Oriented x 3, NL Sensation, NL Gait, NL Muscle Strength and Tone Nutrition: Taking PO's Result Diagrams: 01/29/19 06:42 01/29/19 06:42 Microbiology and Other Data: Microbiology 01/28/19 15:02 Aerobic Blood Culture - Preliminary Blood Venous No Growth Day 1 Anaerobic Blood Culture - Preliminary No Growth Day 1 01/28/19 14:44 Aerobic Blood Culture - Preliminary Blood Venous No Growth Day 1 Anaerobic Blood Culture - Preliminary No Growth Day 1 Diagnostic Imaging: Patient Name: KASSANDRA PALACIOS Medical Record#: [id number] Ordering Physician: Yolette Gross NP Acct.#: [id number] : 1960 Age: 58 Sex: M Location: [address] [place] [address] - MEDICAL Exam Date: 01/29/191446 ADM Status: ADM IN Order Information: US SOFT TISSUE LIMITED EXT-RT Accession Number: [id number] CPT: 40858 HISTORY: r/o Abscess, RUE COMPARISONS: None. TECHNIQUE: Multiple transverse and longitudinal ultrasound images were obtained of the area of clinical abnormality of the right upper extremity using grayscale and color Doppler imaging. FINDINGS: There is subcutaneous edema. There is no loculated fluid collection. IMPRESSION: SOFT TISSUE EDEMA CONSISTENT WITH CELLULITIS GIVEN THE CLINICAL HISTORY. NO LOCULATED FLUID COLLECTION TO SUGGEST ABSCESS. Assess/Plan/Problems-Billing Assessment: This is a 58 year old male with history of HTN and HLP that presented to ED with pustulent wound of the right upper extremity, with leukocytosis and tachycardia, admitted for complicated cellulitis. - Patient Problems (1) Cellulitis Code(s): L03.90 - CELLULITIS, UNSPECIFIED SNOMED Code(s): 978743069 Comment: - No sepsis on admission - Leukocytosis improved, follow labs in AM - CT with no abscess at admission, confimed 01/29 with US still no abscess although there is increased fluctuance and entire area is very firm - Will continue current management with IV vanco, follow troughs - No drainage to culture, blood cultures NTD - Requested RN to re-chasidy margins and cover with dry dressing - Instructed patient not to "pick" at the scab (2) HTN (hypertension) Code(s): I10 - ESSENTIAL (PRIMARY) HYPERTENSION SNOMED Code(s): 85383718 Comment: - continue metorprolol, ASA and statin (3) DVT prophylaxis Code(s): RCP9382 - SNOMED Code(s): 921885502 Comment: - HSQ (4) Full code status Code(s): Z78.9 - OTHER SPECIFIED HEALTH STATUS SNOMED Code(s): 854800297 Status and Disposition: Inpatient for IV atbx, likely 1-2 more days
[2019-01-30] MEDS: Nicotine Patch Removal NOTE PATCH OFF SCH (19:47)
[2019-01-31] MEDS: NS 0.9% 1000 ML** 1,000 ML IV SCH (02:56)
[2019-01-31] MEDS ORDERED: Vancomycin Trough Check NOTE FOLLOW UP ONE (07:30)
[2019-01-31] MEDS: Mometasone/Formoter 100/5 MDI INH SCH ×2 (07:30→19:06)
[2019-01-31 08:04] LABS: Hematocrit 39 % (36-46); Hemoglobin 13.3 g/dL (14.0-18.0); Mean Corpuscular HGB Conc 34 g/dL (31-36); Mean Corpuscular Hemoglobin 34 pg (27-31); Mean Corpuscular Volume 100 fL (80-94); Mean Platelet Volume 8.3 fL (7.4-10.4); Platelet Count 345 10^3/uL (150-450); Red Blood Count 3.93 10^6 /uL (4.18-5.48); Red Cell Distribution Width 13 % (10.5-15); White Blood Count 8.1 10^3/uL (3.5-10.8)
[2019-01-31] MEDS: oxyCODONE/Acetamin 5/325 MG* TAB PO PRN ×2 (09:05→21:00)
[2019-01-31] MEDS: Vancomycin(*) 1,000 MG in NS 0.9% 250 ML* 250 ML IVPB SCH ×2 (09:05→19:25)
[2019-01-31] MEDS: Metoprolol Tartrate TAB* 25 MG PO SCH ×2 (09:06→21:01)
[2019-01-31] MEDS: Aspirin EC TAB* 81 MG TAB.EC PO SCH (09:06)
[2019-01-31] MEDS: Atorvastatin* 80 MG TAB PO SCH (09:06)
[2019-01-31] MEDS: Nicotine PATCH 21 MG/24 HR* PATCH TRANSDERM SCH (09:10)
--- NOTE | 2019-01-31 10:18 | PN ---
Subjective Date of Service: 01/31/19 Interval History: Pt denies any fever/chills. reports his right arm is less swollen and red; starting overnight the area starting draining "white pus" small amount; reports he has full use of his arm. Objective Active Medications: Acetaminophen (Tylenol Tab*) 650 mg PO Q4H PRN PRN Reason: FEVER/PAIN Albuterol (Ventolin Hfa Inhaler*) 1 puff INH Q4H PRN PRN Reason: WHEEZING Aspirin (Aspirin Ec Tab*) 81 mg PO DAILY [facility] Last Admin: 01/31/19 09:06 Dose: 81 mg Atorvastatin Calcium (Lipitor*) 80 mg PO DAILY [facility] Last Admin: 01/31/19 09:06 Dose: 80 mg Sodium Chloride (Ns 0.9% 1000 Ml) 1,000 mls @ 75 mls/hr IV PER RATE [facility] Last Admin: 01/31/19 02:56 Dose: 75 mls/hr Vancomycin HCl 1,000 mg/ (Sodium Chloride) 250 mls @ 166.667 mls/hr IVPB Q12H [facility] Last Admin: 01/31/19 09:05 Dose: 166.667 mls/hr Metoprolol Tartrate (Lopressor Tab*) 25 mg PO BID [facility] Last Admin: 01/31/19 09:06 Dose: 25 mg Mometasone Furoate/Formoterol Fumar (Dulera 100/5 Mdi*) 2 puff INH BID [facility] Last Admin: 01/31/19 07:30 Dose: 2 puff Nicotine (Nicotine Patch 21 Mg/24 Hr*) 1 patch TRANSDERM DAILY [facility] Last Admin: 01/31/19 09:10 Dose: Not Given Nicotine Polacrilex (Nicotine Gum*) 2 mg PO Q2H PRN PRN Reason: CRAVING Ondansetron HCl (Zofran Inj*) 4 mg IV Q4H PRN PRN Reason: NAUSEA/VOMITING Oxycodone/Acetaminophen (Percocet 5/325 Tab*) 1 tab PO Q4H PRN PRN Reason: Pain Last Admin: 01/31/19 09:05 Dose: 1 tab Pharmacy Consult (Vancomycin Per Pharmacy*) 1 note FOLLOW UP . PRN PRN Reason: PER PROTOCOL Pharmacy Profile Note (Nicotine Patch Removal Note*) 1 note PATCH OFF 2100 [facility] Last Admin: 01/30/19 19:47 Dose: Not Given Vital Signs - 8 hr 01/31/19 01/31/19 01/31/19 03:28 07:30 07:52 Temperature 97.5 F 97.7 F Pulse Rate 61 66 67 Respiratory 16 16 Rate Blood Pressure 123/67 117/81 (mmHg) O2 Sat by Pulse 98 97 Oximetry 01/31/19 01/31/19 01/31/19 08:00 08:15 09:05 Temperature Pulse Rate Respiratory 16 17 16 Rate Blood Pressure (mmHg) O2 Sat by Pulse 98 98 Oximetry Oxygen Devices in Use Now: None Appearance: 58 yo male sitting up in bed A+Ox3; Eyes: No Scleral Icterus, PERRLA Ears/Nose/Mouth/Throat: Mucous Membranes Moist Respiratory: Symmetrical Chest Expansion and Respiratory Effort, Clear to Auscultation Cardiovascular: NL Sounds; No Murmurs; No JVD, RRR, No Edema Abdominal: NL Sounds; No Tenderness; No Distention Extremities: No Clubbing, Cyanosis, - - right upper arm baseball size area of erythema, hard, raised, in center is an dime size opening that is draiining purlent drainage; area surrounding the cellulitis there is no noted swelling or erythema (per patient this has improved) Neurological: Alert and Oriented x 3, NL Sensation, NL Muscle Strength and Tone Lines/Tubes/Other Access: Clean, Dry and Intact Peripheral IV Nutrition: Taking PO's Result Diagrams: 01/31/19 07:39 01/29/19 06:42 Microbiology and Other Data: Microbiology 01/28/19 15:02 Aerobic Blood Culture - Preliminary Blood Venous No Growth Day 1 Anaerobic Blood Culture - Preliminary No Growth Day 1 01/28/19 14:44 Aerobic Blood Culture - Preliminary Blood Venous No Growth Day 1 Anaerobic Blood Culture - Preliminary No Growth Day 1 Diagnostic Imaging: Patient Name: KASSANDRA PALACIOS Medical Record#: [id number] Ordering Physician: Yolette Gross NP Acct.#: [id number] : 1960 Age: 58 Sex: M Location: [address] [place] [address] - MEDICAL Exam Date: 01/29/191446 ADM Status: ADM IN Order Information: US SOFT TISSUE LIMITED EXT-RT Accession Number: [id number] CPT: 37519 HISTORY: r/o Abscess, RUE COMPARISONS: None. TECHNIQUE: Multiple transverse and longitudinal ultrasound images were obtained of the area of clinical abnormality of the right upper extremity using grayscale and color Doppler imaging. FINDINGS: There is subcutaneous edema. There is no loculated fluid collection. IMPRESSION: SOFT TISSUE EDEMA CONSISTENT WITH CELLULITIS GIVEN THE CLINICAL HISTORY. NO LOCULATED FLUID COLLECTION TO SUGGEST ABSCESS. Assess/Plan/Problems-Billing Assessment: This is a 58 year old male with history of HTN and HLP that presented to ED with pustulent wound of the right upper extremity, with leukocytosis and tachycardia, admitted for complicated cellulitis. - Patient Problems (1) Cellulitis Comment: - No sepsis on admission; afebrile - Leukocytosis improved, follow labs in AM - CT with no abscess at admission, confimed 01/29 with US still no abscess; overnight starting draiining with purlent drainage; will obtain a wound cx. - Will continue current management with IV vanco, follow troughs - blood cultures NTD (2) HTN (hypertension) Comment: - continue metorprolol, ASA and statin (3) DVT prophylaxis Comment: - HSQ (4) Full code status Status and Disposition: Inpatient for IV atbx, likely 1-2 more days
[2019-01-31] MEDS ORDERED: NS 0.9% 250 ML* 250 ML ONE (20:54)
[2019-01-31] MEDS: Nicotine Patch Removal NOTE PATCH OFF SCH (21:03)
[2019-02-01] MEDS: oxyCODONE/Acetamin 5/325 MG* TAB PO PRN ×2 (05:41→10:22)
[2019-02-01] MEDS: Vancomycin(*) 1,000 MG in NS 0.9% 250 ML* 250 ML IVPB SCH (07:45)
[2019-02-01] MEDS: Aspirin EC TAB* 81 MG TAB.EC PO SCH (07:45)
[2019-02-01] MEDS: Atorvastatin* 80 MG TAB PO SCH (07:45)
[2019-02-01] MEDS: Metoprolol Tartrate TAB* 25 MG PO SCH (07:45)
[2019-02-01] MEDS: Nicotine PATCH 21 MG/24 HR* PATCH TRANSDERM SCH (07:52)
[2019-02-01 08:07] LABS: ABS Basophils 0 10^3/ul (0-0.2); ABS Eosinophils 0.5 10^3/ul (0-0.6); ABS Lymphocytes 2.6 10^3/ul (1.0-4.8); ABS Monocytes 0.6 10^3/ul (0-0.8); ABS Neutrophils 4.5 10^3/ul (1.5-7.7); ABS Nucleated RBC 0 10^3/ul; Eosinophil % 6.1 %; Hematocrit 43 % (36-46); Hemoglobin 14.1 g/dL (14.0-18.0); Lymphocyte % 31.5 %; Mean Corpuscular HGB Conc 33 g/dL (31-36); Mean Corpuscular Hemoglobin 33 pg (27-31); Mean Corpuscular Volume 99 fL (80-94); Mean Platelet Volume 8.1 fL (7.4-10.4); Nucleated Red Blood Cells % 0.4; Platelet Count 393 10^3/uL (150-450); Red Blood Count 4.31 10^6 /uL (4.18-5.48); Red Cell Distribution Width 13 % (10.5-15); White Blood Count 8.2 10^3/uL (3.5-10.8)
[2019-02-01 08:32] LABS: BUN/Creatinine Ratio 14.6 (8-20); C Reactive Protein 18.67 mg/L (<8.01); Calcium 9.5 mg/dL (8.6-10.3); EGFR African American 90.4 (>60); EGFR Non-African American 74.7 (>60); Potassium 4.4 mmol/L (3.5-5.0)
[2019-02-01] MEDS: Mometasone/Formoter 100/5 MDI INH SCH (09:14)
--- NOTE | 2019-02-01 09:51 | DCNOTE ---
Subjective Date of Service: 02/01/19 Interval History: Pt reports he feels well. his arm is better today with less pain and redness. no fevers/chills. Reports good appetite. educated not to pick or squeeze area - he states understanding Reviewed discharge plan with patient - he states understanding Objective Active Medications: Acetaminophen (Tylenol Tab*) 650 mg PO Q4H PRN PRN Reason: FEVER/PAIN Albuterol (Ventolin Hfa Inhaler*) 1 puff INH Q4H PRN PRN Reason: WHEEZING Aspirin (Aspirin Ec Tab*) 81 mg PO DAILY [facility] Last Admin: 02/01/19 07:45 Dose: 81 mg Atorvastatin Calcium (Lipitor*) 80 mg PO DAILY [facility] Last Admin: 02/01/19 07:45 Dose: 80 mg Vancomycin HCl 1,000 mg/ (Sodium Chloride) 250 mls @ 166.667 mls/hr IVPB Q12H [facility] Last Admin: 02/01/19 07:45 Dose: 166.667 mls/hr Metoprolol Tartrate (Lopressor Tab*) 25 mg PO BID [facility] Last Admin: 02/01/19 07:45 Dose: 25 mg Mometasone Furoate/Formoterol Fumar (Dulera 100/5 Mdi*) 2 puff INH BID [facility] Last Admin: 02/01/19 09:14 Dose: 2 puff Nicotine (Nicotine Patch 21 Mg/24 Hr*) 1 patch TRANSDERM DAILY [facility] Last Admin: 02/01/19 07:52 Dose: Not Given Nicotine Polacrilex (Nicotine Gum*) 2 mg PO Q2H PRN PRN Reason: CRAVING Ondansetron HCl (Zofran Inj*) 4 mg IV Q4H PRN PRN Reason: NAUSEA/VOMITING Oxycodone/Acetaminophen (Percocet 5/325 Tab*) 1 tab PO Q4H PRN PRN Reason: Pain Last Admin: 02/01/19 05:41 Dose: 1 tab Pharmacy Consult (Vancomycin Per Pharmacy*) 1 note FOLLOW UP . PRN PRN Reason: PER PROTOCOL Pharmacy Profile Note (Nicotine Patch Removal Note*) 1 note PATCH OFF 2100 [facility] Last Admin: 01/31/19 21:03 Dose: Not Given Vital Signs - 8 hr 02/01/19 02/01/19 02/01/19 03:20 05:41 07:54 Temperature 97.4 F 97.6 F Pulse Rate 61 72 Respiratory 22 18 18 Rate Blood Pressure 117/73 107/83 (mmHg) O2 Sat by Pulse 98 99 Oximetry 02/01/19 02/01/19 08:00 09:14 Temperature Pulse Rate 70 Respiratory 18 18 Rate Blood Pressure (mmHg) O2 Sat by Pulse 99 98 Oximetry Oxygen Devices in Use Now: None Appearance: A+Ox3 in NAD Eyes: PERRLA Ears/Nose/Mouth/Throat: Mucous Membranes Moist Neck: NL Appearance and Movements; NL JVP Respiratory: Symmetrical Chest Expansion and Respiratory Effort, Clear to Auscultation Cardiovascular: NL Sounds; No Murmurs; No JVD, RRR, No Edema Abdominal: NL Sounds; No Tenderness; No Distention Skin: - - right arm cellulitis size of a golf ball - much improvement since yesterday - in the center there is an small dime size open area - serous draining; no noted exudate; no flucuation Neurological: Alert and Oriented x 3, NL Sensation, NL Gait, NL Muscle Strength and Tone Lines/Tubes/Other Access: Clean, Dry and Intact Peripheral IV Nutrition: Taking PO's Result Diagrams: 02/01/19 07:54 02/01/19 07:54 Microbiology and Other Data: Microbiology 01/28/19 15:02 Aerobic Blood Culture - Preliminary Blood Venous No Growth Day 1 Anaerobic Blood Culture - Preliminary No Growth Day 1 01/28/19 14:44 Aerobic Blood Culture - Preliminary Blood Venous No Growth Day 1 Anaerobic Blood Culture - Preliminary No Growth Day 1 Diagnostic Imaging: Patient Name: KASSANDRA PALACIOS Medical Record#: [id number] Ordering Physician: Yolette Gross NP Acct.#: [id number] : 1960 Age: 58 Sex: M Location: [address] [place] [address] - MEDICAL Exam Date: 01/29/19 1447 ADM Status: ADM IN Order Information: US SOFT TISSUE LIMITED EXT-RT Accession Number: [id number] CPT: 93554 HISTORY: r/o Abscess, RUE COMPARISONS: None. TECHNIQUE: Multiple transverse and longitudinal ultrasound images were obtained of the area of clinical abnormality of the right upper extremity using grayscale and color Doppler imaging. FINDINGS: There is subcutaneous edema. There is no loculated fluid collection. IMPRESSION: SOFT TISSUE EDEMA CONSISTENT WITH CELLULITIS GIVEN THE CLINICAL HISTORY. NO LOCULATED FLUID COLLECTION TO SUGGEST ABSCESS. Assess/Plan/Problems-Billing Assessment: This is a 58 year old male with history of HTN and HLP that presented to ED with pustulent wound of the right upper extremity, with leukocytosis and tachycardia, admitted for complicated cellulitis. - Patient Problems (1) Cellulitis Comment: - MRSA + wound - No sepsis on admission; afebrile - Leukocytosis resolved - CT with no abscess at admission, confimed 01/29 with US still no abscess; starting draining 2 nights ago; wound cx MRSA. No purlent drainage noted, no flucuation - no I+D required at this time. Saop & water daily with clean dressing - plan to send on bactrim - follow up with PCP this week - blood cultures NTD (2) HTN (hypertension) Comment: - continue metorprolol, ASA and statin (3) DVT prophylaxis Comment: - HSQ (4) Full code status Status and Disposition: Inpatient. plan for DC to home today
[2019-02-01 11:42] VITALS: BP 107/57
--- NOTE | 2019-02-01 12:17 | DS ---
DISCHARGE SUMMARY: DATE OF ADMISSION: 01/28/19 DATE OF DISCHARGE: 02/01/19 PROVIDER: Nandini Simental NP ATTENDING PHYSICIAN: Dr. Osuna* (report dictated by Nandini Simental NP). PRIMARY CARE PROVIDER: Dr. Agata Gonzalez at [facility]. DISCHARGE DIAGNOSIS: Upper right arm cellulitis with methicillin-resistant Staphylococcus aureus positive wound. SECONDARY DIAGNOSES: 1. Hypertension. 2. Hyperlipidemia. 3. History of angina. DISCHARGE MEDICATIONS: 1. Metoprolol tartrate 25 mg p.o. b.i.d. 2. Dulera 2 puffs INH b.i.d. 3. Nicotine patch 21 mg 1 patch transdermal daily. 4. Atorvastatin 80 mg p.o. daily. 5. Aspirin 81 mg p.o. daily. 6. Ventolin inhaler 1 puff q.4 hours p.r.n. 7. New medication: Bactrim DS 1 tab p.o. b.i.d. x1 week. HISTORY OF PRESENT ILLNESS AND HOSPITAL COURSE: Please see history and physical by Yolette Gross NP, for full admission details, but in summary, this is a 58- year-old male with a past medical history as stated above , who presented to the emergency department on 01/28/19 with complaint of right upper extremity pain. The patient reported approximately 3 days prior he thinks he had a spider bite to the posterior outer portion of his right upper extremity and states that he believes it was a spider bite that he had a tickling sensation on his arm and when he brushed his arm he did notice a spider being flung across the room onto the floor. At that time, he felt some pinching sensation but did not note any abnormalities. The patient then reports the following morning he did notice some redness and itching and over the course of 3 days noted a pimple-like formation that has some purulent drainage. He reports that he did try to pop this pimple as well as applied pressure and tried to "release" the material from the bite site. Then over the course of the next 24 hours, he had some increasing redness, swelling, which spread into his right axilla as well as some reported chills and subjective fevers and general malaise, which brought him to the emergency department for further evaluation. The patient did undergo a CAT scan of the upper extremity, which showed a skin defect noted in the right upper lateral arm with underlying focal area of fluid, but no organized abscess was noted. There was also diffuse subcutaneous edema noted in the right upper arm. He was admitted to the hospitalist service for cellulitis and was started on vancomycin. His blood cultures are negative to date. He did undergo second imaging the next day after admission on 01/29/19 with a soft tissue ultrasound of the area, which showed "soft tissue edema consistent with cellulitis given the clinical history. No loculated fluid collection to suggest abscess." The area of cellulitis did open up the evening of 01/30/19 into yesterday morning, in which there was a noted dime sized area in the center of the circular raised cellulitis, which appeared to be about the size of a baseball on the right upper extremity, which did note to have some purulent drainage. This was sent to the lab for a wound culture, which did grow MRSA bacteria. Over the course of the last 24 hours, this area has gotten much smaller. There has been a complete resolution of the distal erythema and edema as of yesterday 01/31/19. Currently, he has a little bit bigger than a golf ball size area on the right upper arm and in the center may be smaller than a dime size open area that currently has no noted purulent drainage, but some clear drainage from that area. This has had great improvement and the patient is stable for discharge home on antibiotics. He was recommended to wash it daily with soap and water and apply a clean dry dressing. He was recommended to follow up with primary care provider within 1 to 3 days for wound check evaluation. He will be sent home on a course of Bactrim. The patient was educated not to pick, squeeze or manipulate the area and if he has any worsening or concerning symptoms, to immediately return to the emergency department for further evaluation. The patient has remained afebrile throughout hospitalization. He did have noted low-grade temp of 100 on admission. Leukocytosis was 14.8 on admission; however, this resolved by the next day. Initial CRP was 154, today on recheck is 18. Please note that the skin and soft tissue MRSA culture is positive and the ANNA is still pending at the time of dictation. He will be sent home on Bactrim. DISCHARGE PLAN: 1. The patient is stable for discharge to home. 2. The patient is instructed to wash daily with soap and water with clean dressing changes. 3. Return to the emergency department with any worsening or concerning symptoms. 4. Follow up with primary care provider at [facility] in 1 to 3 days for a wound check. TIME SPENT: Approximately 60 minutes was spent on this discharge. NANDINI SIMENTAL NP [id number]/[facility] #: [id number] ROLO
== END 2019-02-01 11:40 | disposition home or self-care (01) | DRG 603 ==
LOC: ED 10:54 → MED 22:06
PROVIDERS: ADMIT Nurse Practitioner Adult Health; ATTEND Internal Medicine
DX: L03.113 Cellulitis of right upper limb (principal); B95.61 Methicillin susceptible Staphylococcus aureus infection as the cause of diseases classified elsewhere; I10 Essential (primary) hypertension; E78.5 Hyperlipidemia, unspecified; W57.XXXA Bitten or stung by nonvenomous insect and other nonvenomous arthropods, initial encounter; Y92.9 Unspecified place or not applicable; Z79.82 Long term (current) use of aspirin; Z79.51 Long term (current) use of inhaled steroids; Z79.899 Other long term (current) drug therapy; Z88.8 Allergy status to other drugs, medicaments and biological substances; Z80.3 Family history of malignant neoplasm of breast; Z82.49 Family history of ischemic heart disease and other diseases of the circulatory system; Z87.891 Personal history of nicotine dependence
CPT/HCPCS: 36415; 80048; 80053; 80202; 83605; 85025; 85027; 85060; 86140; 87040; 87070; 87077; 87186; 87205; 87640; 87641; 93005; 94640; 99284; 99406; A9270-GY; J3370; Q9967